=== PATIENT | female | born 1955 | race Caucasian/White ===

== ENCOUNTER → 2018-12-12 | Outpatient (CLI) | payer OTHER | LOC: M.RAD 12-05 10:42 | DX: Z12.31 Encounter for screening mammogram for malignant neoplasm of breast (principal); R29.890 Loss of height; E03.9 Hypothyroidism, unspecified; Z78.0 Asymptomatic menopausal state ==

== ENCOUNTER 2019-05-13 15:54 | Inpatient (IN) | payer MEDICARE ==
[~2019-05-13] VITALS: Ht 170.2 cm; Wt 92.5 kg
[2019-05-13 16:03] VITALS: BP 114/81
[2019-05-13] MEDS ORDERED: LEVO-T50 MCG PO (16:08)
[2019-05-13] MEDS ORDERED: AUGMENTIN 875-1 EACH PO (16:08)
[2019-05-13 16:34] LABS: ABSOLUTE BASOPHILS 0.1 thou/uL (0.0-0.2); ABSOLUTE EOSINOPHILS 0.1 thou/uL (0.0-0.7); ABSOLUTE LYMPHOCYTES 1.1 thou/uL (0.8-5.3); ABSOLUTE MONOCYTES 0.7 thou/uL (0.0-1.2); ABSOLUTE NEUTROPHILS 8.2 thou/uL (1.6-8.1); BASOPHILS 0.9 %; EOSINOPHILS 1.1 %; HEMATOCRIT 36.7 % (37.0-47.0); HEMOGLOBIN 12.8 gm/dL (12.0-15.0); LYMPHOCYTES 10.6 %; MCH 30.9 pg (26.0-34.0); MCHC 34.7 g/dL (28.0-37.0); MCV 88.9 fL (80.0-100.0); MONOCYTES 6.8 %; NUCLEATED RBCS 0 /100WBC; PLATELET COUNT* 353 thou/uL (150-400); POLYS 80.6 %; RBC 4.13 mil/uL (4.20-5.00); RDW-CV 12.5 % (10.5-14.5); WBC 10.2 thou/uL (4.0-11.0)
[2019-05-13 16:41] LABS: INFLUENZA A ANTIGEN Negative (Negative); INFLUENZA B ANTIGEN Negative (Negative)
[2019-05-13 16:42] LABS: CALCIUM 9.1 mg/dL (8.5-10.1); CREATININE 1.1 mg/dL (0.6-1.3); POTASSIUM 4.1 mmol/L (3.5-5.1)
[2019-05-13 16:47] LABS: ALBUMIN 3.4 g/dL (3.4-5.0); TOTAL BILIRUBIN 0.7 mg/dL (<0.1-1.0); TOTAL PROTEIN 7.2 g/dL (6.4-8.2)
[2019-05-13 20:30] VITALS: BP 146/80
[2019-05-14] VITALS: BP 132/72
[2019-05-14 08:00] VITALS: BP 126/77
--- NOTE | 2019-05-14 10:14 | EKG ---
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: : 1955 Requested By: Yeny Calderon Order Number: [id number] MD: Kun Leigh Measurements Intervals [place] Rate: 89 P: 41 VA: 143 QRS: 7 QRSD: 96 T: 57 QT: 382 QTc: 465 Interpretive Statements Sinus tachycardia Ventricular bigeminy Abnormal R-wave progression, early transition Compared to ECG 11/22/2008 10:51:00 Ventricular premature complex(es) now present Sinus bradycardia no longer present Electronically Signed On 05-14-2019 10:14:02 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
--- NOTE | 2019-05-14 10:18 | EKG ---
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
[2019-05-14] MEDS ORDERED: PROBIOTIC1 EAC1 PO (12:06)
[2019-05-14] MEDS ORDERED: MEDROL DOSPAK21 TA1 PO (12:06)
[2019-05-14] MEDS ORDERED: MUCINEX600 MG PO (12:06)
[2019-05-14] MEDS ORDERED: IBUPROFEN 800800 M1 PO (12:06)
[2019-05-14] MEDS ORDERED: PROAIR HFA8.5 GM INH (12:06)
[2019-05-14] MEDS ORDERED: LEVAQUIN 750 M750 MG PO (12:06)
[2019-05-14] MEDS ORDERED: ACETAMINOPHEN-CO5 ML PO (12:06)
[2019-05-14 14:27] VITALS: BP 126/77
== END 2019-05-14 16:31 | disposition home or self-care (01) | DRG 205 ==
LOC: M.ERS 15:54 → M.ORTHSURG 18:21 → M.TBA-ER 18:21 → M.2W 21:28 → M.ORTHSURG 05-14 10:12
PROVIDERS: Family Medicine; Nurse Practitioner Family; ADMIT Family Medicine
DX: M94.0 Chondrocostal junction syndrome [Tietze] (principal); J15.9 Unspecified bacterial pneumonia; E03.9 Hypothyroidism, unspecified; Z90.49 Acquired absence of other specified parts of digestive tract; Z98.49 Cataract extraction status, unspecified eye; Z79.899 Other long term (current) drug therapy

== ENCOUNTER → 2021-02-02 | Outpatient (CLI) | payer MEDICARE ==
[~2021-02-02] MED LIST: ACETAMINOPHEN-CO5 ML PO; AUGMENTIN 875-1 EACH PO; IBUPROFEN 800800 M1 PO; LEVAQUIN 750 M750 MG PO; LEVO-T50 MCG PO; MEDROL DOSPAK21 TA1 PO; MUCINEX600 MG PO; PROAIR HFA8.5 GM INH; PROBIOTIC1 EAC1 PO
== END ==
LOC: M.RAD 10:57
PROVIDERS: ATTEND Family Medicine
DX: Z12.31 Encounter for screening mammogram for malignant neoplasm of breast (principal)